=== PATIENT | female | born 1965 | race African-American/Black ===

== ENCOUNTER 2022-08-18 13:42 | Inpatient (IN) | payer OTHER ==
[2022-08-18 14:20] VITALS: BMI 15.5
[2022-08-18] MEDS ORDERED: BISMUTH SUBSALICYLATE 524 MG/30 ML PO PRN (14:37)
[2022-08-18] MEDS ORDERED: BENZONATATE 200 MG CAPSULE PO PRN (14:37)
[2022-08-18] MEDS ORDERED: NICOTINE 10 MG CARTRIDGE (INHALER) IH PRN (14:37)
[2022-08-18] MEDS ORDERED: POLYETHYLENE GLYCOL (HEALTHYLAX) 3350 17 GM PACKET PO PRN (14:37)
[2022-08-18] MEDS ORDERED: BENZOCAINE/MENTHOL (CHLORASEPTIC ) LOZENGE MM PRN (14:37)
[2022-08-18] MEDS ORDERED: LOPERAMIDE HCL 2 MG CAPSULE PO PRN (14:37)
[2022-08-18] MEDS ORDERED: guaiFENesin 600 MG TABLET.ER (FP) PO PRN (14:37)
[2022-08-18] MEDS ORDERED: NALOXONE HCL 0.4 MG/ML VIAL IM PRN (14:37)
[2022-08-18] MEDS ORDERED: MAGNESIUM HYDROX 2400MG/30ML ORAL SUSPENSION 30 ML CUP PO PRN (14:37)
[2022-08-18] MEDS ORDERED: NALOXONE HCL (KLOXXADO) 8 MG SPRAY NS PRN (14:37)
[2022-08-18] MEDS ORDERED: IBUPROFEN 400 MG TABLET (FP) PO PRN (14:37)
[2022-08-18] MEDS ORDERED: DICYCLOMINE HCL 10 MG CAPSULE PO PRN (14:37)
[2022-08-18] MEDS ORDERED: methaDONE HCL 10 MG TABLET (FOR DETOX USE ONLY) PO ONE (15:00)
[2022-08-18] MEDS: diazePAM 5 MG TABLET PO PRN ×2 (15:24→22:43)
[2022-08-18] MEDS ORDERED: methaDONE HCL 10 MG TABLET (FOR DETOX USE ONLY) ONE (15:58)
[2022-08-18] MEDS: METHOCARBAMOL 500 MG TABLET PO PRN (18:15)
[2022-08-18] MEDS: IBUPROFEN 600 MG TABLET (FP) PO PRN (18:15)
[2022-08-18] MEDS: THIAMINE HCL 100 MG TABLET (FP) PO SCH (22:41)
[2022-08-18] MEDS: MELATONIN 5 MG TABLETS PO SCH (22:41)
[2022-08-18] MEDS: ACETAMINOPHEN 325 MG TABLET (FP) PO PRN (22:44)
[2022-08-19] MEDS: SULFAMETHOXAZOLE/TRIMETHOPRIM 800MG/160MG D.S. TABLET PO SCH (09:54)
[2022-08-19] MEDS: PRENATAL VITAMINS W/ FOLIC ACID TABLET (FP) PO SCH (09:54)
[2022-08-19] MEDS: diazePAM 5 MG TABLET PO PRN ×2 (09:55→17:55)
[2022-08-19] MEDS: NICOTINE 7 MG/24 HOURS TOPICAL PATCH TD SCH (09:59)
[2022-08-19 11:06] LABS: CALCIUM 8.7 mg/dL (8.5-10.1)
[2022-08-19 11:07] LABS: BLOOD UREA NITROGEN 12.1 mg/dL (7-18)
[2022-08-19 11:10] LABS: CREATININE 0.5 mg/dL (0.55-1.3); HEMATOCRIT 34.8 % (32.4-45.2); HEMOGLOBIN 11.7 GM/dL (10.7-15.3); MCH 28.5 pg (25.7-33.7); MCHC 33.6 g/dl (32.0-36.0); MEAN CELL VOLUME 84.8 fl (80-96); MEAN PLT VOLUME 6.7 fl (7.5-11.1); PLATELET COUNT 194 10^3/uL (134-434); RBC 4.11 M/mm3 (3.60-5.2); RDW 17.3 % (11.6-15.6); WHITE BLOOD COUNT 5.5 K/mm3 (4.0-10.0)
[2022-08-19 11:12] LABS: TOT PROT 7.4 g/dl (6.4-8.2)
[2022-08-19 11:15] LABS: BILIRUBIN,TOTAL 0.3 mg/dL (0.2-1)
[2022-08-19] MEDS ORDERED: POTASSIUM CHLORIDE ORAL LIQUID 20 MEQ/15 ML PO ONE ×2 (11:30→16:00)
[2022-08-19] MEDS: valACYclovir HCL 500 MG TABLET (FP) PO SCH (15:37)
[2022-08-19] MEDS: METHOCARBAMOL 500 MG TABLET PO PRN (17:46)
[2022-08-19] MEDS: MELATONIN 5 MG TABLETS PO SCH (22:29)
[2022-08-19] MEDS: THIAMINE HCL 100 MG TABLET (FP) PO SCH (22:30)
[2022-08-19] MEDS: IBUPROFEN 600 MG TABLET (FP) PO PRN (22:48)
[2022-08-20] MEDS: MAG HYDROX/AL HYDROX/SIMETH 30 ML UNIT-DOSE CUP PO PRN (02:52)
[2022-08-20] MEDS: diazePAM 5 MG TABLET PO PRN ×2 (06:47→17:50)
[2022-08-20] MEDS: METHOCARBAMOL 500 MG TABLET PO PRN (06:48)
[2022-08-20] MEDS ORDERED: methaDONE HCL 10 MG TABLET (FOR DETOX USE ONLY) PO ONE (10:00)
[2022-08-20] MEDS: valACYclovir HCL 500 MG TABLET (FP) PO SCH (10:03)
[2022-08-20] MEDS: NICOTINE 7 MG/24 HOURS TOPICAL PATCH TD SCH (10:05)
[2022-08-20] MEDS: SULFAMETHOXAZOLE/TRIMETHOPRIM 800MG/160MG D.S. TABLET PO SCH (10:05)
[2022-08-20] MEDS: PRENATAL VITAMINS W/ FOLIC ACID TABLET (FP) PO SCH (10:05)
[2022-08-20] MEDS ORDERED: LORazepam 2 MG TABLET PO ONE (12:06)
[2022-08-20] MEDS ORDERED: RITONAVIR 100 MG TABLET PO SCH (12:45)
[2022-08-20] MEDS ORDERED: RALTEGRAVIR POTASSIUM 400 MG TAB PO SCH (12:45)
[2022-08-20] MEDS: RALTEGRAVIR POTASSIUM 400 MG TAB PO SCH ×2 (13:45→17:47)
[2022-08-20] MEDS: NAPROXEN 500 MG TABLET PO SCH ×2 (13:46→22:00)
[2022-08-20] MEDS: DARUNAVIR ETHANOLATE 600 MG TAB PO SCH ×2 (13:46→17:48)
[2022-08-20] MEDS: RITONAVIR 100 MG TABLET PO SCH ×2 (13:46→17:48)
[2022-08-20] MEDS: NIFEdipine E.R. 30 MG TABLET PO SCH (15:08)
[2022-08-20] MEDS: LOSARTAN POTASSIUM 25 MG TABLET PO SCH (15:12)
[2022-08-20] MEDS: metFORMIN HCL 500 MG TABLET (FP) PO SCH (17:47)
[2022-08-20] MEDS: ACETAMINOPHEN 325 MG TABLET (FP) PO PRN (17:54)
[2022-08-20] MEDS: METHYL SALICYLATE/MENTHOL OINT 30 GM TUBE TP SCH (17:57)
[2022-08-20] MEDS ORDERED: diphenhydrAMINE HCL 25 MG CAPSULE (FP) PO ONE (21:36)
[2022-08-20] MEDS: MELATONIN 5 MG TABLETS PO SCH (22:00)
[2022-08-20] MEDS: THIAMINE HCL 100 MG TABLET (FP) PO SCH (22:00)
[2022-08-21] MEDS: diazePAM 5 MG TABLET PO PRN (05:41)
[2022-08-21] MEDS: ACETAMINOPHEN 325 MG TABLET (FP) PO PRN (05:42)
[2022-08-21] MEDS: metFORMIN HCL 500 MG TABLET (FP) PO SCH ×2 (06:16→17:27)
[2022-08-21] MEDS: RALTEGRAVIR POTASSIUM 400 MG TAB PO SCH ×2 (07:16→17:27)
[2022-08-21] MEDS: RITONAVIR 100 MG TABLET PO SCH ×2 (07:17→17:28)
[2022-08-21] MEDS: DARUNAVIR ETHANOLATE 600 MG TAB PO SCH ×2 (07:17→17:28)
[2022-08-21] MEDS: PRENATAL VITAMINS W/ FOLIC ACID TABLET (FP) PO SCH (10:27)
[2022-08-21] MEDS: NIFEdipine E.R. 30 MG TABLET PO SCH (10:27)
[2022-08-21] MEDS: SULFAMETHOXAZOLE/TRIMETHOPRIM 800MG/160MG D.S. TABLET PO SCH (10:27)
[2022-08-21] MEDS: valACYclovir HCL 500 MG TABLET (FP) PO SCH (10:27)
[2022-08-21] MEDS: LOSARTAN POTASSIUM 25 MG TABLET PO SCH (10:27)
[2022-08-21] MEDS: NAPROXEN 500 MG TABLET PO SCH ×2 (10:27→22:31)
[2022-08-21] MEDS: METHYL SALICYLATE/MENTHOL OINT 30 GM TUBE TP SCH (10:28)
[2022-08-21] MEDS: NICOTINE 7 MG/24 HOURS TOPICAL PATCH TD SCH (10:29)
[2022-08-21] MEDS ORDERED: diphenhydrAMINE HCL 25 MG CAPSULE (FP) PO PRN (13:47)
[2022-08-21] MEDS: ALBUTEROL SO4 HFA INHALER IH PRN ×2 (14:17→22:34)
[2022-08-21] MEDS: THIAMINE HCL 100 MG TABLET (FP) PO SCH (22:31)
[2022-08-21] MEDS: MELATONIN 5 MG TABLETS PO SCH (22:31)
[2022-08-22] MEDS: metFORMIN HCL 500 MG TABLET (FP) PO SCH ×2 (06:29→16:55)
[2022-08-22] MEDS: DARUNAVIR ETHANOLATE 600 MG TAB PO SCH ×2 (07:34→16:56)
[2022-08-22] MEDS: RALTEGRAVIR POTASSIUM 400 MG TAB PO SCH ×2 (07:34→16:55)
[2022-08-22] MEDS: RITONAVIR 100 MG TABLET PO SCH ×2 (07:34→16:55)
[2022-08-22] MEDS: valACYclovir HCL 500 MG TABLET (FP) PO SCH (09:44)
[2022-08-22] MEDS: PRENATAL VITAMINS W/ FOLIC ACID TABLET (FP) PO SCH (09:44)
[2022-08-22] MEDS: LOSARTAN POTASSIUM 25 MG TABLET PO SCH (09:44)
[2022-08-22] MEDS: NIFEdipine E.R. 30 MG TABLET PO SCH (09:44)
[2022-08-22] MEDS: SULFAMETHOXAZOLE/TRIMETHOPRIM 800MG/160MG D.S. TABLET PO SCH (09:44)
[2022-08-22] MEDS: NAPROXEN 500 MG TABLET PO SCH ×2 (09:44→22:43)
[2022-08-22] MEDS: NICOTINE 7 MG/24 HOURS TOPICAL PATCH TD SCH (09:45)
[2022-08-22] MEDS: METHYL SALICYLATE/MENTHOL OINT 30 GM TUBE TP SCH (09:45)
[2022-08-22] MEDS ORDERED: methaDONE HCL 10 MG TABLET (FOR DETOX USE ONLY) PO ONE (10:00)
[2022-08-22] MEDS: diphenhydrAMINE HCL 25 MG CAPSULE (FP) PO PRN (14:01)
[2022-08-22] MEDS: ALBUTEROL SO4 HFA INHALER IH PRN ×2 (14:05→22:44)
[2022-08-22] MEDS ORDERED: CYANOCOBALAMIN (VITAMIN B-12) 1000 MCG/1 ML VIAL IM ONE (14:30)
[2022-08-22] MEDS: MAG HYDROX/AL HYDROX/SIMETH 30 ML UNIT-DOSE CUP PO PRN (16:59)
[2022-08-22] MEDS: LIDOCAINE VISCOUS 2% ORAL/TOP 15 ML UNIT-DOSE CUP MM PRN (19:54)
[2022-08-22] MEDS: diazePAM 5 MG TABLET PO PRN (21:20)
[2022-08-22] MEDS: THIAMINE HCL 100 MG TABLET (FP) PO SCH (22:43)
[2022-08-22] MEDS: MELATONIN 5 MG TABLETS PO SCH (22:43)
[2022-08-23 06:15] VITALS: RESP 16
[2022-08-23] MEDS: metFORMIN HCL 500 MG TABLET (FP) PO SCH (07:40)
[2022-08-23] MEDS: DARUNAVIR ETHANOLATE 600 MG TAB PO SCH (07:41)
[2022-08-23] MEDS: RALTEGRAVIR POTASSIUM 400 MG TAB PO SCH (07:41)
[2022-08-23] MEDS: RITONAVIR 100 MG TABLET PO SCH (07:42)
[2022-08-23] MEDS: PRENATAL VITAMINS W/ FOLIC ACID TABLET (FP) PO SCH (10:33)
[2022-08-23] MEDS: NAPROXEN 500 MG TABLET PO SCH (10:34)
[2022-08-23] MEDS: valACYclovir HCL 500 MG TABLET (FP) PO SCH (10:34)
[2022-08-23] MEDS: SULFAMETHOXAZOLE/TRIMETHOPRIM 800MG/160MG D.S. TABLET PO SCH (10:34)
[2022-08-23] MEDS: NICOTINE 7 MG/24 HOURS TOPICAL PATCH TD SCH (10:36)
[2022-08-23] MEDS: NIFEdipine E.R. 30 MG TABLET PO SCH (10:37)
[2022-08-23] MEDS: METHYL SALICYLATE/MENTHOL OINT 30 GM TUBE TP SCH (10:37)
[2022-08-23] MEDS: LOSARTAN POTASSIUM 25 MG TABLET PO SCH (10:37)
[2022-08-23] MEDS: diphenhydrAMINE HCL 25 MG CAPSULE (FP) PO PRN (11:22)
[2022-08-23] MEDS: MAG HYDROX/AL HYDROX/SIMETH 30 ML UNIT-DOSE CUP PO PRN (11:23)
[2022-08-23] MEDS: LIDOCAINE VISCOUS 2% ORAL/TOP 15 ML UNIT-DOSE CUP MM PRN (12:28)
[2022-08-23 13:47] VITALS: BP 99/66; PULSE 98; TEMP 98.2
== END 2022-08-23 13:23 | disposition home or self-care (01) | DRG 773 ==
LOC: YASAS 13:42 → Y3N 16:23
PROVIDERS: ADMIT Allergy & Immunology; ATTEND Surgery
PROC: HZ2ZZZZ Detoxification Services for Substance Abuse Treatment (ICD-10-PCS; principal; 2022-08-18)
DX: F11.23 Opioid dependence with withdrawal (principal); F14.20 Cocaine dependence, uncomplicated; F12.20 Cannabis dependence, uncomplicated; F17.210 Nicotine dependence, cigarettes, uncomplicated; B20 Human immunodeficiency virus [HIV] disease; Z79.899 Other long term (current) drug therapy; E87.6 Hypokalemia; E78.5 Hyperlipidemia, unspecified; I10 Essential (primary) hypertension; E11.9 Type 2 diabetes mellitus without complications; J45.20 Mild intermittent asthma, uncomplicated; M54.50 Low back pain, unspecified; G89.29 Other chronic pain; B18.2 Chronic viral hepatitis C; Z96.643 Presence of artificial hip joint, bilateral; Z79.84 Long term (current) use of oral hypoglycemic drugs; Z87.11 Personal history of peptic ulcer disease
CPT/HCPCS: 36415; 71046-TC-FY; 80053; 82962; 84132; 85027; 86780; 93005; 93010; C9803-CS; U0003; U0005